=== PATIENT | female | born 1985 | race Caucasian/White ===

== ENCOUNTER 2017-11-01 18:51 | Emergency (ER) | payer OTHER ==
[2017-11-01 19:02] VITALS: BMI 60.3
[2017-11-01 19:23] LABS: HEMATOCRIT 34.5 % (32.4-45.2); HEMOGLOBIN 11.9 GM/dL (10.7-15.3); LYMPH % 35.6 % (8-40); MCH 31.3 pg (25.7-33.7); MCHC 34.5 g/dl (32.0-36.0); MEAN CELL VOLUME 90.6 fl (80-96); MEAN PLT VOLUME 7.5 fl (7.5-11.1); MONO % 6.7 % (3.8-10.2); NEUT % 55.7 % (42.8-82.8); PLATELET COUNT 292 K/MM3 (134-434); RBC 3.81 M/mm3 (3.60-5.2); RDW 12.7 % (11.6-15.6)
[2017-11-01 20:01] LABS: ALBUMIN 3.7 g/dl (3.4-5.0); ANION GAP 9 (8-16); BILIRUBIN,TOTAL 0.2 mg/dL (0.2-1.0); BLOOD UREA NITROGEN 9 mg/dL (7-18); CALCIUM 8.5 mg/dL (8.5-10.1); CHLORIDE 106 mmol/L (98-107); CO2 21 mmol/L (21-32); CREATININE 0.5 mg/dL (0.55-1.02); GLUCOSE,RANDOM 88 mg/dL (74-106); POTASSIUM 3.9 mmol/L (3.5-5.1); SGOT/AST 8 U/L (15-37); SGPT/ALT 18 U/L (12-78); SODIUM 136 mmol/L (136-145); TOT PROT 6.8 g/dl (6.4-8.2)
[2017-11-01 20:02] LABS: ALK PHOS 75 U/L (45-117)
[2017-11-01] MEDS ORDERED: SODIUM CHLORIDE 1,000 ML IV STA (20:23)
--- NOTE | 2017-11-01 20:23 | PDOC ---
History of Present Illness <Britt Mccarthy - Last Filed: 11/01/17 22:35> - General History Source: Patient Exam Limitations: No Limitations - History of Present Illness Initial Comments: 11/01/17 20:29 The patient is a 32 year old female who is , approximately 13 weeks with confirmed IUP, who presents to the ED complaining of 1 day of vaginal bleeding. The patient reports she slipped and fell in the home yesterday. She states she fell on her back and left wrist, sustaining an injury to her left wrist. Today, she began to notice suprapubic cramping and vaginal bleeding, prompting her to come to the ED.On evaluation, she reports she feels like she is passing a large mass. No fever or chills. No nausea, vomiting, or diarrhea. No head injury or loss of consciousness yesterday. <Krystle Loving - Last Filed: 11/01/17 22:52> - General Chief Complaint: Vaginal Bleeding Stated Complaint: VAGINAL BLEEDING 12WK Time Seen by Provider: 11/01/17 18:55 Past History - Past Medical History COPD: No Other medical history: DENIES MEDICAL HX - Reproductive History Is Patient Now?: Yes (12 wks ) (#): 1 Para: 0 Spontaneous : 0 - Suicide/Smoking/Psychosocial Hx Smoking History: Never smoked Hx Alcohol Use: No Drug/Substance Use Hx: No <Britt Mccarthy - Last Filed: 11/01/17 22:35> <Krystle Loving - Last Filed: 11/01/17 22:52> - Past Medical History Allergies/Adverse Reactions: Allergies Allergy/AdvReac Type Severity Reaction Status Date / Time No Known Allergies Allergy Verified 11/01/17 19:02 Home Medications: Ambulatory Orders NK [No Known Home Medication] 11/01/17 Review of Systems - Review of Systems Able to Perform ROS?: Yes Comments:: 11/01/17 21:31 GENERAL/CONSTITUTIONAL: No fever or chills. No weakness. HEAD, EYES, EARS, NOSE AND THROAT: No change in vision. No ear pain or discharge. No sore throat. CARDIOVASCULAR: No chest pain or shortness of breath. RESPIRATORY: No cough, wheezing, or hemoptysis. GASTROINTESTINAL: No nausea, vomiting, diarrhea or constipation. GENITOURINARY: +Suprapubic cramping. +Vaginal bleeding. No dysuria, frequency, or change in urination. MUSCULOSKELETAL: +Left wrist pain. No neck or back pain. SKIN: No rash NEUROLOGIC: No headache, vertigo, loss of consciousness, or change in strength/ sensation. ENDOCRINE: No increased thirst. No abnormal weight change. HEMATOLOGIC/LYMPHATIC: No anemia, easy bleeding, or history of blood clots. ALLERGIC/IMMUNOLOGIC: No hives or skin allergy. <Krystle Loving - Last Filed: 11/01/17 22:52> *Physical Exam - Vital Signs Last Vital Signs Temp Pulse Resp BP Pulse Ox 97.9 F 142 H 20 140/103 98 11/01/17 18:55 11/01/17 18:55 11/01/17 18:55 11/01/17 18:55 11/01/17 18:55 <Britt Mccarthy - Last Filed: 11/01/17 22:35> - Vital Signs Last Vital Signs Temp Pulse Resp BP Pulse Ox 97.9 F 142 H 20 140/103 98 11/01/17 18:55 11/01/17 18:55 11/01/17 18:55 11/01/17 18:55 11/01/17 18:55 - Physical Exam Comments: 11/01/17 21:34 GENERAL: Awake, alert, and fully oriented. Anxious appearing. HEAD: No signs of trauma EYES: PERRLA, EOMI, sclera anicteric, conjunctiva clear ENT: Auricles normal inspection, nares patent. Moist mucosa NECK: Normal ROM, supple, no JVD, or masses LUNGS: Breath sounds equal, clear to auscultation bilaterally. No wheezes, and no crackles HEART: Regular rate and rhythm, normal S1 and S2, no murmurs, rubs or gallops ABDOMEN: Suprapubic tenderness to palpation. Soft, normoactive bowel sounds. No guarding, no rebound. No masses EXTREMITIES: Normal range of motion, no edema. No clubbing or cyanosis. No cords, erythema, or tenderness NEUROLOGICAL: Alert and oriented x 3. Moves all extremities. Face is symmetric. SKIN: +4 cm x 6 cm area of ecchymosis to the left lateral wrist. Warm, Dry, normal turgor, no rashes noted. PELVIC: Cervical os is closed. Multiple medium sized clots (approximately 2 cm is size). No CMT or adnexal tenderness. <Krystle Loving - Last Filed: 11/01/17 22:52> ED Treatment Course - LABORATORY CBC & Chemistry Diagram: 11/01/17 19:19 11/01/17 19:19 - ADDITIONAL ORDERS Additional order review: Laboratory Results 11/01/17 11/01/17 11/01/17 19:19 19:19 19:19 Sodium 136 Potassium 3.9 Chloride 106 Carbon Dioxide 21 Anion Gap 9 BUN 9 Creatinine 0.5 L Creat Clearance w eGFR > 60 Random Glucose 88 Calcium 8.5 Total Bilirubin 0.2 AST 8 L ALT 18 Alkaline Phosphatase 75 Total Protein 6.8 Albumin 3.7 Beta HCG, Quant 26354.0 Blood Type O POSITIVE Antibody Screen Negative 11/01/17 19:19 RBC 3.81 MCV 90.6 MCHC 34.5 RDW 12.7 MPV 7.5 Neutrophils % 55.7 Lymphocytes % 35.6 Monocytes % 6.7 Eosinophils % 1.0 Basophils % 1.0 - RADIOLOGY Radiology Studies Ordered: Category Date Time Status LIMITED US [US] Stat Ultrasound 11/01/17 19:07 Taken TRANSVAGINAL US PREG [US] Stat Ultrasound 11/01/17 19:42 Taken <Britt Mccarthy - Last Filed: 11/01/17 22:35> - LABORATORY CBC & Chemistry Diagram: 11/01/17 19:19 11/01/17 19:19 - ADDITIONAL ORDERS Additional order review: Laboratory Results 11/01/17 11/01/17 11/01/17 19:19 19:19 19:19 Sodium 136 Potassium 3.9 Chloride 106 Carbon Dioxide 21 Anion Gap 9 BUN 9 Creatinine 0.5 L Creat Clearance w eGFR > 60 Random Glucose 88 Calcium 8.5 Total Bilirubin 0.2 AST 8 L ALT 18 Alkaline Phosphatase 75 Total Protein 6.8 Albumin 3.7 Beta HCG, Quant 21581.0 Blood Type O POSITIVE Antibody Screen Negative 11/01/17 19:19 RBC 3.81 MCV 90.6 MCHC 34.5 RDW 12.7 MPV 7.5 Neutrophils % 55.7 Lymphocytes % 35.6 Monocytes % 6.7 Eosinophils % 1.0 Basophils % 1.0 <Krystle Loving - Last Filed: 11/01/17 22:52> Medical Decision Making - Medical Decision Making 11/01/17 22:30 Obstetrics US. Preliminary reading by Imaging Endoscopy Tech. Findings: Single live intrauterine gestation at about 12 weeks and 0 days, based on crown- rump length. heart rate noted at 150 beats per minute. Adjacent complex fluid collection which was not measured, likely representing a subchorionic hemorrhage. Maternal ovaries are not imaged. Region of the cervix appears closed. THIS DOCUMENT HAS BEEN ELECTRONICALLY SIGNED Benigno Slaughter MD <Krystle Loving - Last Filed: 11/01/17 22:52> *DC/Admit/Observation/Transfer <Britt Mccarthy - Last Filed: 11/01/17 22:35> - Attestations Scribe Attestion: 11/01/17 21:48 Documentation prepared by Krystle Loving, acting as durable medical equipment repairer for Britt Mccarthy MD. <Krystle Loving - Last Filed: 11/01/17 22:52> Diagnosis at time of Disposition: Subchorionic hemorrhage in first trimester Qualifiers: Fetus number: single or unspecified fetus Qualified Code(s): O41.8X10 - Other specified disorders of amniotic fluid and membranes, first trimester, not applicable or unspecified - Discharge Dispostion Disposition: HOME Condition at time of disposition: Stable - Patient Instructions Printed Discharge Instructions: DI for Vaginal Bleeding During Additional Instructions: please followup with your appliance counselor rest
[2017-11-01 21:08] VITALS: BP 114/67; PULSE 84; TEMP 98.3
== END 2017-11-01 22:50 | disposition home or self-care (01) ==
LOC: JER 18:51
PROC: 3E0337Z Introduction of Electrolytic and Water Balance Substance into Peripheral Vein, Percutaneous Approach (ICD-10-PCS; principal; 2017-11-01)
DX: O26.891 Other specified pregnancy related conditions, first trimester (principal); O41.8X10 Other specified disorders of amniotic fluid and membranes, first trimester, not applicable or unspecified; Z3A.12 12 weeks gestation of pregnancy; W01.0XXA Fall on same level from slipping, tripping and stumbling without subsequent striking against object, initial encounter; Y93.89 Activity, other specified; Y92.018 Other place in single-family (private) house as the place of occurrence of the external cause
CPT/HCPCS: 36415; 76815-TC; 76817-TC; 80053; 84702; 85025; 86850; 86900; 86901; 96360; 99285-25

== ENCOUNTER 2022-07-07 07:50 | Inpatient (IN) | payer OTHER ==
[2022-07-07] MEDS ORDERED: morphine SULFATE/PF 1 MG/2 ML (2cc Syringe - QUVA) EP ONE (08:33)
[2022-07-07] MEDS ORDERED: ONDANSETRON 4 MG/2 ML VIAL IVPUSH PRN (08:33)
[2022-07-07] MEDS ORDERED: CITRIC ACID/SODIUM CITRATE 30 ML UNIT-DOSE CUP PO ONE (08:35)
[2022-07-07] MEDS ORDERED: ELECTROLYTE-148 SOLN 500 ML IV ONE (08:35)
[2022-07-07 08:49] VITALS: BMI 29.3
[2022-07-07] MEDS ORDERED: morphine SULFATE/PF 1 MG/2 ML (2cc Syringe - QUVA) ONE (09:26)
[2022-07-07] MEDS ORDERED: ceFAZolin SODIUM 1 GM VIAL ONE (09:29)
[2022-07-07] MEDS ORDERED: SODIUM CHLORIDE 0.9% P/F 10 ML VIAL IJ ONE (09:29)
[2022-07-07 09:41] LABS: BASO % 0.6 % (0-2.0); EOS % 1.2 % (0-4.5); HEMATOCRIT 32.7 % (32.4-45.2); HEMOGLOBIN 11.3 GM/dL (10.7-15.3); LYMPH % 20.5 % (8-40); MCH 31.4 pg (25.7-33.7); MCHC 34.5 g/dl (32.0-36.0); MEAN CELL VOLUME 91.1 fl (80-96); MEAN PLT VOLUME 8.4 fl (7.5-11.1); MONO % 7.4 % (3.8-10.2); NEUT % 70.3 % (42.8-82.8); PLATELET COUNT 276 10^3/uL (134-434); RBC 3.59 M/mm3 (3.60-5.2); RDW 14.2 % (11.6-15.6); WHITE BLOOD COUNT 6.9 K/mm3 (4.0-10.0)
[2022-07-07] MEDS ORDERED: PHENYLEPHRINE HCL 10 MG/1 ML SINGLE DOSE VIAL ONE (09:45)
[2022-07-07 09:53] LABS: INR 0.93 (0.83-1.09); PROTHROMBIN TIME (PATIENT) 10.7 SEC (9.7-13.0)
[2022-07-07 09:57] LABS: CALCIUM 8.3 mg/dL (8.5-10.1)
[2022-07-07 09:58] LABS: BLOOD UREA NITROGEN 6.5 mg/dL (7-18)
[2022-07-07 10:00] LABS: CREATININE 0.6 mg/dL (0.55-1.3)
[2022-07-07] MEDS ORDERED: OXYTOCIN 10 UNIT/ML 10ML MDV ONE (10:01)
[2022-07-07] MEDS ORDERED: ONDANSETRON 4 MG/2 ML VIAL ONE (10:01)
[2022-07-07] MEDS ORDERED: METHYLERGONOVINE MALEATE 0.2 MG/1 ML AMP IM ONE (10:20)
[2022-07-07] MEDS ORDERED: oxyCODONE HCL 5 MG TABLET PO PRN (11:02)
[2022-07-07] MEDS ORDERED: ONDANSETRON 4 MG/2 ML VIAL IVPB PRN (11:02)
[2022-07-07] MEDS ORDERED: ACETAMINOPHEN 1000 MG/100 ML BAG IVPB PRN (11:02)
[2022-07-07] MEDS ORDERED: IBUPROFEN 800 MG/8 ML IJ IVPB PRN (11:02)
[2022-07-07] MEDS ORDERED: OXYTOCIN 20 UNITS in 0.9% NS 20 UNIT/1,000 ML INFUS.BAG IV ONE (12:08)
[2022-07-07] MEDS: OXYTOCIN 20 UNITS in 0.9% NS 20 UNIT/1,000 ML INFUS.BAG IV SCH ×2 (12:09→20:38)
[2022-07-07] MEDS ORDERED: NIFEdipine 10 MG CAPSULE (FP) PO ONE (13:00)
[2022-07-07] MEDS: guaiFENesin 200 MG/10 ML 10 ML UNIT-DOSE CUPS PO PRN ×2 (14:41→20:40)
[2022-07-07] MEDS: CEFAZOLIN SODIUM 2 GM in DEXTROSE 5%-WATER 100 ML IVPB SCH (17:28)
[2022-07-07] MEDS ORDERED: CEFAZOLIN 2 GM in DEXTROSE 5%-WATER - 50 ML IVPB SCH (18:00)
[2022-07-07] MEDS: SENNOSIDES/DOCUSATE COMBO (SENNA PLUS) TABLET (UD) PO PRN (20:40)
[2022-07-07] MEDS: ACETAMINOPHEN 325 MG TABLET (FP) PO PRN (20:40)
[2022-07-07] MEDS: SIMETHICONE 80 MG TAB.CHEW (FP) PO PRN (20:40)
[2022-07-08] MEDS: CEFAZOLIN SODIUM 2 GM in DEXTROSE 5%-WATER 100 ML IVPB SCH (01:26)
[2022-07-08] MEDS: ACETAMINOPHEN 325 MG TABLET (FP) PO PRN (04:51)
[2022-07-08] MEDS: SIMETHICONE 80 MG TAB.CHEW (FP) PO PRN ×2 (04:51→20:53)
[2022-07-08] MEDS: guaiFENesin 200 MG/10 ML 10 ML UNIT-DOSE CUPS PO PRN ×4 (04:52→20:54)
[2022-07-08] MEDS: IBUPROFEN 600 MG TABLET (FP) PO PRN ×4 (06:30→20:53)
[2022-07-08 07:41] LABS: BASO % 0.6 % (0-2.0); EOS % 1.2 % (0-4.5); HEMATOCRIT 36.4 % (32.4-45.2); HEMOGLOBIN 12.4 GM/dL (10.7-15.3); LYMPH % 11.9 % (8-40); MCH 31.2 pg (25.7-33.7); MCHC 34.2 g/dl (32.0-36.0); MEAN CELL VOLUME 91.3 fl (80-96); MEAN PLT VOLUME 8.4 fl (7.5-11.1); MONO % 5.1 % (3.8-10.2); NEUT % 81.2 % (42.8-82.8); PLATELET COUNT 290 10^3/uL (134-434); RBC 3.99 M/mm3 (3.60-5.2); RDW 14.3 % (11.6-15.6); WHITE BLOOD COUNT 10.3 K/mm3 (4.0-10.0)
[2022-07-08] MEDS ORDERED: ACETAMINOPHEN 500 MG TABLET (FP) PO PRN (10:18)
[2022-07-08] MEDS ORDERED: BISACODYL 10 MG SUPP.RECT RC PRN (11:02)
[2022-07-08] MEDS: SENNOSIDES/DOCUSATE COMBO (SENNA PLUS) TABLET (UD) PO PRN (20:53)
[2022-07-08 22:40] VITALS: RESP 18
[2022-07-09] MEDS: SIMETHICONE 80 MG TAB.CHEW (FP) PO PRN (06:26)
[2022-07-09] MEDS: IBUPROFEN 600 MG TABLET (FP) PO PRN (06:26)
[2022-07-09] MEDS: guaiFENesin 200 MG/10 ML 10 ML UNIT-DOSE CUPS PO PRN (06:26)
[2022-07-09] MEDS ORDERED: POLYETHYLENE GLYCOL (HEALTHYLAX) 3350 17 GM PACKET PO ONE (11:00)
[2022-07-09 11:53] VITALS: BP 140/92; PULSE 69; TEMP 98.1
== END 2022-07-09 13:00 | disposition home or self-care (01) | DRG 540 ==
LOC: JLDR 07:50 → J3W 12:15
PROVIDERS: ADMIT Specialist; ATTEND Specialist
PROC: 10D00Z1 Extraction of Products of Conception, Low, Open Approach (ICD-10-PCS; principal; 2022-07-07)
PROC: 0UT70ZZ Resection of Bilateral Fallopian Tubes, Open Approach (ICD-10-PCS; 2022-07-07)
DX: O34.211 Maternal care for low transverse scar from previous cesarean delivery (principal); Z37.0 Single live birth; O98.52 Other viral diseases complicating childbirth; B97.4 Respiratory syncytial virus as the cause of diseases classified elsewhere; Z30.2 Encounter for sterilization; Z3A.39 39 weeks gestation of pregnancy
CPT/HCPCS: 36415; 80048; 85025; 85610; 85730; 86850; 86900; 86901; 88302-TC; 88307-TC

== ENCOUNTER 2023-12-23 21:24 | Emergency (ER) | payer OTHER ==
[2023-12-23 21:29] VITALS: BP 126/85; PULSE 81; RESP 18; TEMP 98; BMI 26.6
[2023-12-23] MEDS ORDERED: ACETAMINOPHEN 500 MG TABLET (FP) ONE (22:56)
[2023-12-23] MEDS: ACETAMINOPHEN 500 MG TABLET (FP) PO ONE (23:04)
== END 2023-12-24 00:07 | disposition home or self-care (01) ==
LOC: JERFT 21:24
PROC: 0XQWXZZ Repair Left Little Finger, External Approach (ICD-10-PCS; principal; 2023-12-23)
DX: S61.217A Laceration without foreign body of left little finger without damage to nail, initial encounter (principal); W26.8XXA Contact with other sharp object(s), not elsewhere classified, initial encounter
CPT/HCPCS: 99283-25